=== PATIENT | female | born 1940 | race Caucasian/White ===

== ENCOUNTER 2019-08-09 04:01 | Inpatient (IN) | payer MEDICARE ==
[~2019-08-09] VITALS: Ht 160 cm; Wt 59.6 kg
[2019-08-09 07:37] LABS: INR 1.12 (0.9-1.15); Partial Thromboplastin Time 23.9 sec (23.64-32.05)
[2019-08-09 07:42] LABS: Basophils # (auto) 0 10 ^3/uL (0-0.2); Basophils % (auto) 0.6 % (0.0-2.0); Chloride 109 mmol/L (98-107); Eosinophils # (auto) 0 10 ^3/uL (0-0.8); Eosinophils % (auto) 1.1 % (0.0-7.0); Hematocrit 32.5 % (36.0-46.0); Hemoglobin 10.6 g/dL (12.2-16.2); Lymphocytes # (auto) 0.2 10 ^3/uL (0.4-5.4); Mean Corpuscular Hemoglobin 28.9 pg (28.0-32.0); Mean Corpuscular Hgb Conc. 32.5 g/dL (32.0-36.0); Mean Corpuscular Volume 88.9 fL (80.0-100.0); Monocytes # (auto) 0 10 ^3/uL (0-1.3); Monocytes % (auto) 1.1 % (0.0-12.0); Neutrophils % (auto) 89.2 % (37.0-80.0); Nucleated Red Blood Cells % 0.1 %; Platelet Count (auto) 277 10^3/uL (140-450); Potassium 3.2 mmol/L (3.5-5.1); Red Blood Cells 3.65 10^6/uL (4.0-5.20); Sodium 140 mmol/L (136-145); White Blood Cell 2.3 10^3/uL (4.4-10.8)
[2019-08-09 07:52] LABS: Alanine Aminotransferase 70 U/L (13-56); Albumin 3.7 g/dL (3.4-5.0); Alkaline Phosphatase 236 U/L (45-117); Anion Gap 6 (5-15); Aspartate Aminotransferase 497 U/L (15-37); BUN/Creatinine Ratio 22.7; Bilirubin, Total 1.5 mg/dL (0.2-1.0); Blood Urea Nitrogen 17 mg/dL (7-18); Calcium 8.8 mg/dL (8.5-10.1); Carbon Dioxide 25 mmol/L (21-32); GFR African American 95 mL/min; GFR Non-African American 79 mL/min; Glucose 78 mg/dL (74-106); Total Protein 6.9 g/dL (6.4-8.2)
[2019-08-09 08:42] LABS: Urine Bacteria NONE SEEN /hpf (None Seen); Urine Blood Negative /uL (Negative); Urine Specific Gravity 1.014 (1.001-1.035); Urine WBC 2 /hpf (0 - 5)
[2019-08-09] MEDS ORDERED: MORPHINE SULF INJ 2 MG/ML SYRINGE 1ML IV PRN ×2 (14:15)
[2019-08-09] MEDS ORDERED: ONDANSETRON HCL 4 MG/2 ML VIAL IV PRN (14:15)
[2019-08-09] MEDS ORDERED: NITROGLYCERIN 0.4 MG SL TAB SL PRN (14:15)
[2019-08-09] MEDS ORDERED: IOHEXOL 300 MG/ML 100ML BOTTLE IJ ONE (14:24)
[2019-08-09] MEDS ORDERED: hydrALAZINE HCL 20 MG/ML VL IV PRN (15:00)
[2019-08-09] MEDS: SOD CHL 0.9%/ KCL 20MEQ 1,000 ML IV SCH ×2 (15:03→23:13)
[2019-08-09 22:00] VITALS: BP 130/74
[2019-08-09] MEDS: METOPROLOL TARTRATE 50 MG TAB PO SCH (23:01)
[2019-08-09] MEDS: CARBIDOPA W LEVODOPA 25/100mg TABLET PO SCH (23:01)
[2019-08-09] MEDS: APIXABAN 2.5 MG TAB PO SCH (23:13)
[2019-08-10] MEDS ORDERED: UMEC1AER IN (03:15)
[2019-08-10] MEDS ORDERED: AMLO5TAB15 PO (03:15)
[2019-08-10] MEDS ORDERED: ATO40T PO (03:15)
[2019-08-10] MEDS ORDERED: ALEN1TAB32 PO (03:15)
[2019-08-10] MEDS ORDERED: CHOL1000 PO (03:15)
[2019-08-10] MEDS ORDERED: CLON0.1T PO (03:18)
[2019-08-10] MEDS ORDERED: PANT1INJ3 IV (03:34)
[2019-08-10] MEDS ORDERED: APIX2.5T PO (03:34)
[2019-08-10] MEDS ORDERED: SODIGRA3 OR (03:34)
[2019-08-10] MEDS ORDERED: DULO60CA PO (03:34)
[2019-08-10] MEDS ORDERED: PANT40TA2 PO (03:34)
[2019-08-10] MEDS ORDERED: ROPI4TAB6 PO (03:34)
[2019-08-10] MEDS ORDERED: DORZ2SOL18 EACHEYE (03:34)
[2019-08-10] MEDS ORDERED: METO25TA5 PO (03:34)
[2019-08-10] MEDS ORDERED: HYDR-4296 PO (03:34)
[2019-08-10] MEDS ORDERED: MED20T PO (03:34)
[2019-08-10] MEDS ORDERED: LOSA-69 PO (03:34)
[2019-08-10] MEDS ORDERED: CARB1CAP PO (03:34)
[2019-08-10] MEDS ORDERED: LEVO25TA6 PO (03:34)
[2019-08-10 04:42] VITALS: BP 125/50
[2019-08-10 05:25] LABS: Basophils # (auto) 0 10 ^3/uL (0-0.2); Basophils % (auto) 0.3 % (0.0-2.0); Eosinophils # (auto) 0.1 10 ^3/uL (0-0.8); Eosinophils % (auto) 1.2 % (0.0-7.0); Hematocrit 29.8 % (36.0-46.0); Hemoglobin 9.8 g/dL (12.2-16.2); Lymphocytes # (auto) 0.9 10 ^3/uL (0.4-5.4); Lymphocytes % (auto) 10.8 % (10.0-50.0); Mean Corpuscular Hemoglobin 29.2 pg (28.0-32.0); Mean Corpuscular Hgb Conc. 32.7 g/dL (32.0-36.0); Mean Corpuscular Volume 89.3 fL (80.0-100.0); Monocytes # (auto) 0.4 10 ^3/uL (0-1.3); Monocytes % (auto) 5.5 % (0.0-12.0); Neutrophils # (auto) 6.5 10 ^3/uL (1.6-8.6); Neutrophils % (auto) 82.2 % (37.0-80.0); Platelet Count (auto) 259 10^3/uL (140-450); Red Blood Cells 3.34 10^6/uL (4.0-5.20); Red Cell Distribution Width 16.9 % (11.8-14.3); White Blood Cell 7.9 10^3/uL (4.4-10.8)
[2019-08-10 05:27] LABS: Calcium 8.4 mg/dL (8.5-10.1); Potassium 3.4 mmol/L (3.5-5.1)
[2019-08-10] MEDS: CARBIDOPA W LEVODOPA 25/100mg TABLET PO SCH (06:09)
[2019-08-10] MEDS: SOD CHL 0.9%/ KCL 20MEQ 1,000 ML IV SCH ×2 (06:10→17:25)
[2019-08-10 06:44] LABS: Albumin 3.1 g/dL (3.4-5.0); BUN/Creatinine Ratio 17.7; Bilirubin, Total 3.4 mg/dL (0.2-1.0); Total Protein 6.1 g/dL (6.4-8.2)
--- NOTE | 2019-08-10 08:10 | NUR ---
OPENING SHIFT NOTE Assumed care of patient. PT is awake and alert. No S/S of distress/SOB or pain. Instructed on POC and to call for assist PRN. Bed in low and locked position. Side rails up x2. Call light within reach. Will continue to monitor for changes Q1hr and PRN.
[2019-08-10 09:00] VITALS: BP 138/62
[2019-08-10] MEDS: LEVOTHYROXINE SODIUM 100 MCG/5 ML INJ IV SCH (10:43)
[2019-08-10] MEDS: APIXABAN 2.5 MG TAB PO SCH (10:43)
[2019-08-10] MEDS: PANTOPRAZOLE 40 MG/10 ML VIAL INJ IV SCH (10:43)
[2019-08-10] MEDS: METOPROLOL TARTRATE 50 MG TAB PO SCH ×2 (10:45→23:00)
[2019-08-10 13:00] VITALS: BP 138/63
--- NOTE | 2019-08-10 13:30 | NUR ---
Nutrition Assessment Notes Please refer to link for full assessment notes. Est Energy needs: 2838-2458 kcals (20-23 kcal/kgBW) Est Protein needs: 56-65 gms/day (1.0-1.1 gm/kgBW) Will continue to monitor and reassess prn. Addendum: 08/10/19 at [address] Amended: Links added.
[2019-08-10] MEDS ORDERED: CARBIDOPA W LEVODOPA 25/100mg TABLET PO SCH (14:00)
[2019-08-10 17:00] VITALS: BP 148/67
[2019-08-10] MEDS: RYTARY PO SCH ×2 (17:25→23:00)
[2019-08-10] MEDS ORDERED: cloNIDine HCL 0.1 MG TAB PO PRN (19:45)
[2019-08-10] MEDS ORDERED: hydrALAZINE HCL 20 MG/ML VL IV PRN (20:00)
[2019-08-10 22:00] VITALS: BP 143/67
[2019-08-10] MEDS: ZOLPIDEM TARTRATE 5 MG TAB PO PRN (22:00)
[2019-08-10] MEDS: DORZOLAMIDE HCL 2% OPTH(EYE) SOL 10ML EACHEYE SCH (22:00)
[2019-08-10] MEDS: ATORVASTATIN 20 MG TAB PO SCH (23:00)
[2019-08-10] MEDS: ROPINIROLE HCL 4 MG PO SCH (23:00)
[2019-08-10] MEDS: DULoxetine HCL 30 MG CAP PO SCH (23:00)
[2019-08-11] MEDS: SOD CHL 0.9%/ KCL 20MEQ 1,000 ML IV SCH ×3 (00:58→14:45)
[2019-08-11] MEDS: APIXABAN 2.5 MG TAB PO SCH ×3 (00:58→21:44)
[2019-08-11] MEDS: ROPINIROLE HCL 4 MG PO SCH ×3 (05:54→21:44)
[2019-08-11] MEDS: RYTARY PO SCH ×3 (05:55→21:44)
[2019-08-11 06:04] VITALS: BP 143/71
--- NOTE | 2019-08-11 07:30 | NUR ---
Opening Shift Note RECEIVED REPORT FROM NOC RN. Assumed care of patient, awake and alert. No S/S of distress/SOB or pain. BED IN LOWEST, LOCKED POSITION WITH SIDERAILS UP x2 AND CALL LIGHT WITHIN REACH. Instructed on POC and to call for assist PRN, will continue to monitor for changes Q1hr and PRN.
[2019-08-11 09:00] VITALS: BP 136/86
[2019-08-11] MEDS: DORZOLAMIDE HCL 2% OPTH(EYE) SOL 10ML EACHEYE SCH ×2 (10:00→21:43)
[2019-08-11] MEDS: PANTOPRAZOLE 40 MG/10 ML VIAL INJ IV SCH (10:06)
[2019-08-11] MEDS: LOSARTAN POTASSIUM 50 MG TAB PO SCH (10:07)
[2019-08-11] MEDS: LEVOTHYROXINE SODIUM 100 MCG/5 ML INJ IV SCH (10:07)
[2019-08-11] MEDS: METOPROLOL TARTRATE 50 MG TAB PO SCH ×2 (10:08→21:47)
[2019-08-11] MEDS: DULoxetine HCL 30 MG CAP PO SCH ×2 (10:08→21:44)
[2019-08-11] MEDS: amLODIPine BESYLATE 5 MG TAB PO SCH (10:09)
[2019-08-11 11:08] LABS: Hepatitis B Surface Antibody Negative
[2019-08-11 11:38] LABS: Hepatitis A Total Antibody Positive
[2019-08-11 12:46] LABS: Hepatitis B Core Total AB Negative; Hepatitis C Antibody Negative (Negative)
[2019-08-11 12:47] LABS: Hepatitis B Surface Antigen Negative (Negative)
[2019-08-11 13:00] VITALS: BP 131/82
--- NOTE | 2019-08-11 13:51 | NUR ---
DR. Estefania BERNARD AT BEDSIDE.
[2019-08-11 17:00] VITALS: BP 146/71
--- NOTE | 2019-08-11 19:05 | NUR ---
opening note pt is A&Ox4. respirations even and nonlabored on room air. no c/o pain or discomfort. POC discussed. bed in low locked position, call light within reach.
[2019-08-11] MEDS: ZOLPIDEM TARTRATE 5 MG TAB PO PRN (21:48)
[2019-08-11] MEDS: ATORVASTATIN 20 MG TAB PO SCH (21:48)
[2019-08-11 22:50] VITALS: BP 154/70
[2019-08-12] MEDS: SOD CHL 0.9%/ KCL 20MEQ 1,000 ML IV SCH ×2 (00:52→11:22)
[2019-08-12] MEDS: ROPINIROLE HCL 4 MG PO SCH ×2 (05:37→14:14)
[2019-08-12] MEDS: RYTARY PO SCH ×2 (05:38→14:14)
[2019-08-12 05:52] VITALS: BP 153/74
[2019-08-12 06:54] VITALS: BP 139/64
--- NOTE | 2019-08-12 06:56 | NUR ---
closing note pt awake and alert. pt denies pain or discomfort at this time. respirations even and nonlabored on room air. pt is looking forward to eating breakfast. bed in low locked position, call light within reach.
[2019-08-12 09:00] VITALS: BP 147/75
[2019-08-12] MEDS: LOSARTAN POTASSIUM 50 MG TAB PO SCH (09:53)
[2019-08-12] MEDS: METOPROLOL TARTRATE 50 MG TAB PO SCH (09:53)
[2019-08-12] MEDS: DULoxetine HCL 30 MG CAP PO SCH (09:54)
[2019-08-12] MEDS: LEVOTHYROXINE SODIUM 100 MCG/5 ML INJ IV SCH (09:54)
[2019-08-12] MEDS: amLODIPine BESYLATE 5 MG TAB PO SCH (09:54)
[2019-08-12] MEDS: DORZOLAMIDE HCL 2% OPTH(EYE) SOL 10ML EACHEYE SCH (09:54)
[2019-08-12] MEDS: PANTOPRAZOLE 40 MG/10 ML VIAL INJ IV SCH (09:54)
[2019-08-12] MEDS: APIXABAN 2.5 MG TAB PO SCH (09:54)
[2019-08-12 12:28] VITALS: BP 147/75
[2019-08-12 13:00] VITALS: BP 138/69
--- NOTE | 2019-08-12 14:25 | NUR ---
Discharge instructions given as ordered. Encourage to follow up with PMD (F/U WITH DR. MIKEL RAMIRES #[phone] AD[address]ESS : [id number], [place], [id number]) as instructed. All questions and concerns addressed. Patient verbalized understanding. Medication reconciliation form completed and copy given to patient. Home medications held in Pharmacy returned to patient. IV removed with catheter intact, pressure dressing applied. Telemetry unit returned to ICU. Patient taken to vehicle via wheelchair with all personal belongings, accompanied by staff and family member. No distress noted at time of departure.
== END 2019-08-12 14:33 | disposition home or self-care (01) | DRG 440 ==
LOC: EDBD 04:01 → ER 04:01 → TELE 04:02 → TELE-WESTW 20:15
PROVIDERS: ADMIT Nurse Practitioner Acute Care; ATTEND Family Medicine
DX: K85.90 Acute pancreatitis without necrosis or infection, unspecified (principal); D64.9 Anemia, unspecified; E03.9 Hypothyroidism, unspecified; E11.9 Type 2 diabetes mellitus without complications; E87.6 Hypokalemia; G20 Parkinson's disease; I10 Essential (primary) hypertension; I25.10 Atherosclerotic heart disease of native coronary artery without angina pectoris; I48.0 Paroxysmal atrial fibrillation; J44.9 Chronic obstructive pulmonary disease, unspecified; F32.9 Major depressive disorder, single episode, unspecified; M25.511 Pain in right shoulder; M25.512 Pain in left shoulder; E78.00 Pure hypercholesterolemia, unspecified; Z95.5 Presence of coronary angioplasty implant and graft; I25.2 Old myocardial infarction; Z79.01 Long term (current) use of anticoagulants; Z95.0 Presence of cardiac pacemaker
CPT/HCPCS: 36415; 71045; 73030; 74177; 74181; 76705; 80053; 80061; 81001; 83036; 83690; 83880; 84443; 84484; 85025; 85610; 85730; 86704; 86706; 86708; 86803; 87340; 93005; C9113; G0378; J3490

== ENCOUNTER 2020-11-22 05:30 | Emergency (ER) | payer MEDICARE ==
[~2020-11-22] VITALS: Ht 167.6 cm; Wt 77.1 kg
[~2020-11-22 05:30] MED LIST: ALEN70TA74 PO; AMLO-489 PO; APIX2.5T PO; ATO40T PO; CARB1CAP PO; CHOL1TAB30 PO; CLON0.1T PO; DORZ2SOL18 EACHEYE; DULO60CA PO; HYDR-4296 PO; LEVO25TA6 PO; LOSA-69 PO; MEGE20TA5 PO; METO25TA5 PO; PANT1INJ3 IV; PANT40TA2 PO; ROPI4TAB6 PO; SODIGRA3 OR; UMEC1AER IN
[2020-11-22] MEDS ORDERED: ONDANSETRON HCL 4 MG/2 ML VIAL IV ONE (06:15)
[2020-11-22] MEDS ORDERED: MORPHINE SULFATE 4 MG/ML SYR/VIAL IV ONE (06:15)
[2020-11-22 06:51] LABS: Basophils # (auto) 0 10 ^3/uL (0-0.2); Basophils % (auto) 0.6 % (0.0-2.0); Eosinophils # (auto) 0.1 10 ^3/uL (0-0.8); Eosinophils % (auto) 1.6 % (0.0-7.0); Hematocrit 36.5 % (36.0-46.0); Hemoglobin 11.9 g/dL (12.2-16.2); Lymphocytes # (auto) 1.3 10 ^3/uL (0.4-5.4); Lymphocytes % (auto) 19.6 % (10.0-50.0); Mean Corpuscular Hemoglobin 30.9 pg (28.0-32.0); Mean Corpuscular Hgb Conc. 32.5 g/dL (32.0-36.0); Monocytes # (auto) 0.6 10 ^3/uL (0-1.3); Monocytes % (auto) 8.7 % (0.0-12.0); Neutrophils # (auto) 4.4 10 ^3/uL (1.6-8.6); Neutrophils % (auto) 69.5 % (37.0-80.0); Red Blood Cells 3.85 10^6/uL (4.0-5.20); White Blood Cell 6.4 10^3/uL (4.4-10.8)
[2020-11-22 07:07] LABS: INR 0.99 (0.9-1.15); Partial Thromboplastin Time 22.7 sec (23.6-33.0)
[2020-11-22 07:24] LABS: Chloride 107 mmol/L (98-107); Sodium 139 mmol/L (136-145)
[2020-11-22 07:35] LABS: Alanine Aminotransferase 11 U/L (13-56); Albumin 3.7 g/dL (3.4-5.0); Alkaline Phosphatase 145 U/L (45-117); Anion Gap 7 (5-15); Aspartate Aminotransferase 23 U/L (15-37); BUN/Creatinine Ratio 21.8; Bilirubin, Total 0.4 mg/dL (0.2-1.0); Blood Urea Nitrogen 19 mg/dL (7-18); Calcium 9.3 mg/dL (8.5-10.1); Carbon Dioxide 25 mmol/L (21-32); GFR African American 80 mL/min; GFR Non-African American 66 mL/min; Glucose 129 mg/dL (74-106); Total Protein 7.2 g/dL (6.4-8.2)
[2020-11-22 12:00] VITALS: BP 123/38
== END 2020-11-22 14:16 | disposition home or self-care (01) ==
LOC: EDBD 05:30 → ER 05:30
DX: S00.83XA Contusion of other part of head, initial encounter (principal); M79.10 Myalgia, unspecified site; R07.81 Pleurodynia; J44.9 Chronic obstructive pulmonary disease, unspecified; I25.10 Atherosclerotic heart disease of native coronary artery without angina pectoris; I10 Essential (primary) hypertension; I25.2 Old myocardial infarction; Z79.899 Other long term (current) drug therapy; Z20.822 Contact with and (suspected) exposure to COVID-19; W18.39XA Other fall on same level, initial encounter; Y93.89 Activity, other specified; Y92.89 Other specified places as the place of occurrence of the external cause; Y99.8 Other external cause status
CPT/HCPCS: 36415; 70450; 70486; 71250; 80053; 83880; 84484; 85025; 85610; 85730; 87426; 96374; 96375; 99285; J2270; J2405

== ENCOUNTER 2021-01-18 20:11 | Inpatient (IN) | payer MEDICARE ==
[~2021-01-18] VITALS: Ht 160 cm; Wt 54.6 kg
[2021-01-18] MEDS ORDERED: ONDANSETRON HCL 4 MG/2 ML VIAL IM ONE (20:45)
[2021-01-18] MEDS ORDERED: HYDROmorphone HCL 2 MG/ML VL IM ONE (20:45)
[2021-01-18] MEDS ORDERED: ONDANSETRON HCL 4 MG/2 ML VIAL IV ONE (21:15)
[2021-01-18] MEDS ORDERED: HYDROmorphone HCL 2 MG/ML VL IV ONE (21:15)
[2021-01-18 21:17] LABS: Basophils # (auto) 0 10 ^3/uL (0-0.2); Basophils % (auto) 0.9 % (0.0-2.0); Eosinophils # (auto) 0 10 ^3/uL (0-0.8); Hematocrit 37.4 % (36.0-46.0); Hemoglobin 12.2 g/dL (12.2-16.2); Lymphocytes # (auto) 0.6 10 ^3/uL (0.4-5.4); Lymphocytes % (auto) 22.1 % (10.0-50.0); Mean Corpuscular Hemoglobin 30.5 pg (28.0-32.0); Mean Corpuscular Hgb Conc. 32.5 g/dL (32.0-36.0); Mean Corpuscular Volume 93.7 fL (80.0-100.0); Monocytes # (auto) 0.2 10 ^3/uL (0-1.3); Monocytes % (auto) 5.7 % (0.0-12.0); Neutrophils # (auto) 2.1 10 ^3/uL (1.6-8.6); Neutrophils % (auto) 71.3 % (37.0-80.0); Nucleated Red Blood Cells % 0.1 %; Red Blood Cells 3.99 10^6/uL (4.0-5.20); Red Cell Distribution Width 15.3 % (11.8-14.3); White Blood Cell 2.9 10^3/uL (4.4-10.8)
[2021-01-18 21:34] LABS: Albumin 3.6 g/dL (3.4-5.0); BUN/Creatinine Ratio 17.5; Calcium 9.1 mg/dL (8.5-10.1); Potassium 3.9 mmol/L (3.5-5.1)
[2021-01-18 21:38] LABS: Bilirubin, Total 0.6 mg/dL (0.2-1.0)
[2021-01-18] MEDS ORDERED: ALBUTEROL SULF 2.5 MG/0.5ML(0.5%) NEB SOLN NEB PRN (22:45)
[2021-01-18] MEDS ORDERED: ACETAMINOPHEN 325 MG TAB PO PRN (22:45)
[2021-01-18] MEDS ORDERED: ONDANSETRON HCL 4 MG/2 ML VIAL IV PRN (22:45)
[2021-01-18 23:43] VITALS: BP 112/48
[2021-01-19 03:00] VITALS: BP 133/65
[2021-01-19] MEDS: MORPHINE SULFATE 4 MG/ML SYR/VIAL IV PRN ×2 (03:45→10:34)
[2021-01-19] MEDS ORDERED: TRAM50TA2 PO (04:22)
[2021-01-19] MEDS ORDERED: GABA300C10 PO (04:22)
[2021-01-19] MEDS ORDERED: PRED10TA PO (04:22)
[2021-01-19 05:00] VITALS: BP 147/64
[2021-01-19] MEDS: HYDROcodone-ACET 5/325MG TAB PO PRN (05:14)
[2021-01-19] MEDS: CARBIDOPA W LEVODOPA 25/100mg TABLET PO SCH ×4 (05:15→21:54)
[2021-01-19] MEDS: LEVOTHYROXINE SODIUM 50 MCG TAB PO SCH (05:15)
[2021-01-19 05:51] LABS: Urine Bacteria FEW /hpf (None Seen); Urine Blood Negative /uL (Negative); Urine Hyaline Cast FEW /lpf (0 - 2); Urine Mucus FEW (None Seen); Urine Specific Gravity 1.021 (1.001-1.035); Urine WBC 189 /hpf (0 - 5)
[2021-01-19 07:37] LABS: Basophils # (auto) 0 10 ^3/uL (0-0.2); Basophils % (auto) 0.8 % (0.0-2.0); Eosinophils # (auto) 0 10 ^3/uL (0-0.8); Eosinophils % (auto) 0.4 % (0.0-7.0); Hematocrit 33.1 % (36.0-46.0); Hemoglobin 10.9 g/dL (12.2-16.2); Lymphocytes # (auto) 1.1 10 ^3/uL (0.4-5.4); Lymphocytes % (auto) 30.9 % (10.0-50.0); Mean Corpuscular Hemoglobin 30.7 pg (28.0-32.0); Mean Corpuscular Hgb Conc. 32.9 g/dL (32.0-36.0); Mean Corpuscular Volume 93.3 fL (80.0-100.0); Monocytes # (auto) 0.4 10 ^3/uL (0-1.3); Monocytes % (auto) 10.8 % (0.0-12.0); Neutrophils # (auto) 2.1 10 ^3/uL (1.6-8.6); Neutrophils % (auto) 57.1 % (37.0-80.0); Red Blood Cells 3.55 10^6/uL (4.0-5.20); Red Cell Distribution Width 15.3 % (11.8-14.3); White Blood Cell 3.6 10^3/uL (4.4-10.8)
[2021-01-19 07:52] LABS: Calcium 8.6 mg/dL (8.5-10.1); Potassium 3.4 mmol/L (3.5-5.1)
[2021-01-19 07:55] LABS: BUN/Creatinine Ratio 17.1
[2021-01-19 09:00] VITALS: BP 120/61
[2021-01-19] MEDS: MEMANTINE HCL 5 MG TAB PO SCH ×2 (09:19→21:54)
[2021-01-19] MEDS: PANTOPRAZOLE 40 MG TAB PO SCH (09:20)
[2021-01-19] MEDS: amLODIPine BESYLATE 5 MG TAB PO SCH (09:20)
[2021-01-19] MEDS: LOSARTAN POTASSIUM 50 MG TAB PO SCH (09:21)
[2021-01-19] MEDS: CLOPIDOGREL BISULFATE 75 MG TAB PO SCH (09:21)
[2021-01-19] MEDS: ENOXAPARIN SOD 40 MG/0.4 ML SYRINGE SC SCH (09:22)
[2021-01-19] MEDS ORDERED: MORPHINE SULFATE INJECTION 2 MG/ML SYRG IV PRN (11:45)
[2021-01-19 13:00] VITALS: BP 120/58
[2021-01-19 17:10] VITALS: BP 111/55
[2021-01-19 21:45] VITALS: BP 120/67
[2021-01-19] MEDS: TEMAZEPAM 15 MG CAP PO PRN (22:30)
[2021-01-20 05:00] VITALS: BP 118/65
[2021-01-20] MEDS: LEVOTHYROXINE SODIUM 50 MCG TAB PO SCH (06:30)
[2021-01-20] MEDS: CARBIDOPA W LEVODOPA 25/100mg TABLET PO SCH ×4 (06:30→21:39)
[2021-01-20 09:00] VITALS: BP 113/65
[2021-01-20] MEDS: MEMANTINE HCL 5 MG TAB PO SCH ×2 (10:43→21:36)
[2021-01-20] MEDS: amLODIPine BESYLATE 5 MG TAB PO SCH (10:43)
[2021-01-20] MEDS: LOSARTAN POTASSIUM 50 MG TAB PO SCH (10:43)
[2021-01-20] MEDS: CLOPIDOGREL BISULFATE 75 MG TAB PO SCH (10:44)
[2021-01-20] MEDS: PANTOPRAZOLE 40 MG TAB PO SCH (10:44)
[2021-01-20] MEDS: ENOXAPARIN SOD 40 MG/0.4 ML SYRINGE SC SCH (10:44)
[2021-01-20 13:00] VITALS: BP 129/68
[2021-01-20] MEDS: HYDROcodone-ACET 5/325MG TAB PO PRN (14:09)
[2021-01-20 16:55] VITALS: BP 125/69
[2021-01-20] MEDS: TEMAZEPAM 15 MG CAP PO PRN (21:37)
[2021-01-20 22:00] VITALS: BP 136/75
[2021-01-21 05:00] VITALS: BP 133/67
[2021-01-21] MEDS: CARBIDOPA W LEVODOPA 25/100mg TABLET PO SCH ×4 (06:44→21:29)
[2021-01-21] MEDS: LEVOTHYROXINE SODIUM 50 MCG TAB PO SCH (06:44)
[2021-01-21 06:56] LABS: Basophils # (auto) 0 10 ^3/uL (0-0.2); Basophils % (auto) 0.5 % (0.0-2.0); Eosinophils # (auto) 0.2 10 ^3/uL (0-0.8); Eosinophils % (auto) 3.3 % (0.0-7.0); Hematocrit 43.1 % (36.0-46.0); Hemoglobin 13.9 g/dL (12.2-16.2); Lymphocytes # (auto) 1.6 10 ^3/uL (0.4-5.4); Lymphocytes % (auto) 35.1 % (10.0-50.0); Mean Corpuscular Hemoglobin 30.7 pg (28.0-32.0); Mean Corpuscular Hgb Conc. 32.2 g/dL (32.0-36.0); Mean Corpuscular Volume 95.3 fL (80.0-100.0); Monocytes # (auto) 0.4 10 ^3/uL (0-1.3); Monocytes % (auto) 9.1 % (0.0-12.0); Neutrophils # (auto) 2.4 10 ^3/uL (1.6-8.6); Nucleated Red Blood Cells % 0.2 %; Red Blood Cells 4.52 10^6/uL (4.0-5.20); Red Cell Distribution Width 16.1 % (11.8-14.3); White Blood Cell 4.7 10^3/uL (4.4-10.8)
[2021-01-21 07:10] LABS: Potassium 3.9 mmol/L (3.5-5.1)
[2021-01-21 07:17] LABS: BUN/Creatinine Ratio 14.1; Calcium 9.3 mg/dL (8.5-10.1)
[2021-01-21 09:00] VITALS: BP 132/73
[2021-01-21] MEDS: ENOXAPARIN SOD 40 MG/0.4 ML SYRINGE SC SCH (10:10)
[2021-01-21] MEDS: CLOPIDOGREL BISULFATE 75 MG TAB PO SCH (10:11)
[2021-01-21] MEDS: LOSARTAN POTASSIUM 50 MG TAB PO SCH (10:11)
[2021-01-21] MEDS: PANTOPRAZOLE 40 MG TAB PO SCH (10:11)
[2021-01-21] MEDS: amLODIPine BESYLATE 5 MG TAB PO SCH (10:13)
[2021-01-21] MEDS: MEMANTINE HCL 5 MG TAB PO SCH ×2 (10:15→21:29)
[2021-01-21] MEDS: HYDROcodone-ACET 5/325MG TAB PO PRN (11:46)
[2021-01-21] MEDS: LACTULOSE 20Gm/30ML SOLN PO PRN (12:39)
[2021-01-21 13:00] VITALS: BP 122/75
[2021-01-21 16:48] VITALS: BP 113/65
[2021-01-21] MEDS: TEMAZEPAM 15 MG CAP PO PRN (21:38)
[2021-01-21 22:00] VITALS: BP 124/71
[2021-01-22 05:00] VITALS: BP 117/60
[2021-01-22] MEDS: CARBIDOPA W LEVODOPA 25/100mg TABLET PO SCH ×4 (05:53→22:01)
[2021-01-22] MEDS: LEVOTHYROXINE SODIUM 50 MCG TAB PO SCH (05:54)
[2021-01-22 09:00] VITALS: BP 118/67
[2021-01-22] MEDS: CLOPIDOGREL BISULFATE 75 MG TAB PO SCH (10:00)
[2021-01-22] MEDS: ENOXAPARIN SOD 40 MG/0.4 ML SYRINGE SC SCH (10:00)
[2021-01-22] MEDS: PANTOPRAZOLE 40 MG TAB PO SCH (10:00)
[2021-01-22] MEDS: LOSARTAN POTASSIUM 50 MG TAB PO SCH (10:00)
[2021-01-22] MEDS: MEMANTINE HCL 5 MG TAB PO SCH ×2 (10:00→22:01)
[2021-01-22] MEDS: amLODIPine BESYLATE 5 MG TAB PO SCH (10:00)
[2021-01-22 13:19] VITALS: BP 103/60
[2021-01-22 17:21] VITALS: BP 106/53
[2021-01-22 22:00] VITALS: BP 126/56
[2021-01-22] MEDS: TEMAZEPAM 15 MG CAP PO PRN (22:01)
[2021-01-23 05:30] VITALS: BP 89/52
[2021-01-23] MEDS: LEVOTHYROXINE SODIUM 50 MCG TAB PO SCH (06:33)
[2021-01-23] MEDS: CARBIDOPA W LEVODOPA 25/100mg TABLET PO SCH ×4 (06:33→21:27)
[2021-01-23 09:00] VITALS: BP 90/57
[2021-01-23] MEDS: LOSARTAN POTASSIUM 50 MG TAB PO SCH (09:19)
[2021-01-23] MEDS: MEMANTINE HCL 5 MG TAB PO SCH ×2 (09:20→21:27)
[2021-01-23] MEDS: ENOXAPARIN SOD 40 MG/0.4 ML SYRINGE SC SCH (09:20)
[2021-01-23] MEDS: PANTOPRAZOLE 40 MG TAB PO SCH (09:20)
[2021-01-23] MEDS: CLOPIDOGREL BISULFATE 75 MG TAB PO SCH (09:20)
[2021-01-23] MEDS: amLODIPine BESYLATE 5 MG TAB PO SCH (09:20)
[2021-01-23 13:00] VITALS: BP 112/57
[2021-01-23 17:29] VITALS: BP 111/64
[2021-01-23] MEDS: TEMAZEPAM 15 MG CAP PO PRN (21:27)
[2021-01-23 21:59] VITALS: BP 103/44
[2021-01-24 05:34] VITALS: BP 132/75
[2021-01-24] MEDS: CARBIDOPA W LEVODOPA 25/100mg TABLET PO SCH ×3 (06:00→18:07)
[2021-01-24] MEDS: LEVOTHYROXINE SODIUM 50 MCG TAB PO SCH (06:30)
[2021-01-24 08:00] VITALS: BP 109/50
[2021-01-24] MEDS: LACTULOSE 20Gm/30ML SOLN PO PRN (08:50)
[2021-01-24] MEDS: MEMANTINE HCL 5 MG TAB PO SCH (08:50)
[2021-01-24] MEDS: PANTOPRAZOLE 40 MG TAB PO SCH (08:50)
[2021-01-24] MEDS: ENOXAPARIN SOD 40 MG/0.4 ML SYRINGE SC SCH (08:50)
[2021-01-24] MEDS: amLODIPine BESYLATE 5 MG TAB PO SCH (08:51)
[2021-01-24] MEDS: CLOPIDOGREL BISULFATE 75 MG TAB PO SCH (08:51)
[2021-01-24] MEDS: LOSARTAN POTASSIUM 50 MG TAB PO SCH (08:51)
[2021-01-24 12:00] VITALS: BP 127/77
[2021-01-24 16:00] VITALS: BP 127/67
== END 2021-01-24 18:28 | DRG 543 ==
LOC: EDBD 20:11 → ER 20:14 → OVERFLOW 22:31 → WEST WING 23:45
PROVIDERS: ADMIT Nurse Practitioner; ATTEND Internal Medicine
PROC: 2W0 Placement, Anatomical Regions, Change (ICD-10-PCS; principal; 2021-01-21)
DX: M48.56XA Collapsed vertebra, not elsewhere classified, lumbar region, initial encounter for fracture (principal); S52.291A Other fracture of shaft of right ulna, initial encounter for closed fracture; S52.91XA Unspecified fracture of right forearm, initial encounter for closed fracture; G20 Parkinson's disease; M54.16 Radiculopathy, lumbar region; J44.9 Chronic obstructive pulmonary disease, unspecified; M48.07 Spinal stenosis, lumbosacral region; I10 Essential (primary) hypertension; I48.0 Paroxysmal atrial fibrillation; E11.9 Type 2 diabetes mellitus without complications; I25.10 Atherosclerotic heart disease of native coronary artery without angina pectoris; G89.29 Other chronic pain; R82.71 Bacteriuria; M19.90 Unspecified osteoarthritis, unspecified site; Z20.822 Contact with and (suspected) exposure to COVID-19; M54.9 Dorsalgia, unspecified; M25.551 Pain in right hip; M81.0 Age-related osteoporosis without current pathological fracture; Z83.3 Family history of diabetes mellitus; Z95.5 Presence of coronary angioplasty implant and graft; Z95.0 Presence of cardiac pacemaker; I25.2 Old myocardial infarction; Y93.89 Activity, other specified; Y92.89 Other specified places as the place of occurrence of the external cause; Y99.8 Other external cause status
CPT/HCPCS: 36415; 72100; 72131; 73110; 73502; 80048; 80053; 81001; 85025; 85652; 87081; 87426; 96374; 96375; 97110; 97116; 97163; 97530; G0378; J2405